=== PATIENT | male | born 1950 | race American Indian/Alaskan Native ===

== ENCOUNTER 2022-03-01 18:22 | Inpatient (IN) | payer MEDICAID, MEDICARE ==
[2022-03-01 21:38] LABS: Hematocrit 47.2 % (35.5-45.6); Hemoglobin 15.2 gm/dl (11.8-15.2); Mean Corpuscular HGB Conc 32 % (32-34); Mean Corpuscular Volume 92 fl (84-94); Platelet Count 125 K/mm3 (140-440); Red Blood Count 5.12 M/mm3 (3.65-5.03); Red Cell Distribution Width 13.6 % (13.2-15.2)
[2022-03-01 21:41] LABS: Alanine Aminotransferase 8 units/L (7-56); Albumin 4.2 g/dL (3.9-5); BUN/Creatinine Ratio 13; Blood Urea Nitrogen 13 mg/dL (9-20); Calcium 9.7 mg/dL (8.4-10.2); Hemolysis Index 33
[2022-03-01 22:26] LABS: Band Neutrophils # (Manual) 0.3 K/mm3; Monocytes % (Manual) 0 % (0.0-7.3); Platelet Estimate Consistent w Auto; Total Cells Counted 100
--- NOTE | 2022-03-02 10:02 | Emergency Department Report ---
ED General Adult HPI - General Chief complaint: Recheck/Abnormal Lab/Rx Stated complaint: MEDICAL CLEARANCE Time Seen by Provider: 03/02/22 09:42 Source: patient, family Mode of arrival: Wheelchair Limitations: No Limitations - History of Present Illness Initial comments: Patient is 72-year-old male [facility] abnormal outside blood work. CBC reportedly showed WBC count in the 30,000s. Patient has dementia and is unable to give further history. - Related Data Allergies Allergy/AdvReac Type Severity Reaction Status Date / Time No Known Allergies Allergy Verified 03/01/22 20:27 ED Review of Systems ROS: Stated complaint: MEDICAL CLEARANCE Other details as noted in HPI Comment: Unobtainable due to pts medical conditions ED Physical Exam - General Limitations: No Limitations General appearance: alert, in no apparent distress - Head Head exam: Present: atraumatic, normocephalic - Respiratory Respiratory exam: Present: normal lung sounds bilaterally. Absent: respiratory distress - Cardiovascular Cardiovascular Exam: Present: regular rate, normal rhythm, normal heart sounds - GI/Abdominal GI/Abdominal exam: Present: soft. Absent: distended, tenderness - Rectal Rectal exam: Present: deferred - Neurological Exam Neurological exam: Present: alert, CN II-XII intact - Skin Skin exam: Present: warm, dry, intact, normal color ED Course Vital Signs 03/02/22 00:20 Temperature 97.5 F L Pulse Rate 65 Respiratory 16 Rate Blood Pressure 103/69 [Right] O2 Sat by Pulse 99 Oximetry ED Medical Decision Making - Lab Data Result diagrams: 03/01/22 20:41 03/01/22 20:41 - Medical Decision Making CBC reveals leukocytosis of 30,000 with lymphocytic predominance concerning for leukemia. Chemistry is unremarkable. Vital signs are stable. Will admit to hospitalist for further work-up. Critical care attestation.: If time is entered above; I have spent that time in minutes in the direct care of this critically ill patient, excluding procedure time. ED Disposition Clinical Impression: Lymphocytosis Disposition: ADMITTED INPATIENT Is pt being admited?: Yes Condition: Stable
--- NOTE | 2022-03-02 10:32 | XRay Report ---
CHEST 2 VIEWS INDICATION / CLINICAL INFORMATION: Chest pain. COMPARISON: 12/25/2018 FINDINGS: SUPPORT DEVICES: None. HEART / MEDIASTINUM: No significant abnormality. LUNGS / PLEURA: No significant pulmonary or pleural abnormality. No pneumothorax. 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 IMPRESSION: 1. No acute findings. Signer Name: Jama Olea Jr, MD Signed: 03/02/2022 10:28 AM Workstation Name: [id number]
[2022-03-02] MEDS ORDERED: MORPHINE 4 MG/1 ML INJ IV PRN (10:37)
[2022-03-02] MEDS ORDERED: ONDANSETRON 4 MG/2 ML INJ IV PRN ×2 (10:37→16:54)
[2022-03-02] MEDS ORDERED: MORPHINE 2 MG/1 ML INJ IV PRN (10:37)
[2022-03-02] MEDS ORDERED: ACETAMINOPHEN 325 MG TAB PO PRN ×2 (10:37→16:54)
[2022-03-02] MEDS ORDERED: HYDROcodone/ACETAMINOPHEN 5-325 MG TAB PO PRN (10:37)
[2022-03-02] MEDS ORDERED: METOCLOPRAMIDE 10 MG/2 ML INJ IV PRN (16:54)
--- NOTE | 2022-03-02 17:29 | History and Physical Report ---
History of Present Illness Date of examination: 03/02/22 Date of admission: 03/02/22 10:37 Chief complaint: High white count History of present illness: 72-year-old male sent from alf facility for high blood count of 30,000. Patient has dementia with behavioral problems. History could not be obtained. Limited history available from alf facility. Early onset dementia. Review of Systems ROS: Constitutional cachectic HEENT no sore throat no post nasal drip no diplopia Neck no neck stiffness no lymph gland enlargement Chest and lungs no shortness of breath cough or wheezing CVS no chest pain no diaphoresis no palpitations GI no nausea no vomiting no diarrhea Genitourinary system no dysuria no flank pain Musculoskeletal system no muscle pains no joint pains SAMPLE PASTER alert but not oriented Skin no rash no itching Psychiatric no depression no homicidal or suicidal tendencies Hematologic no lymphedema or bruising Endocrine no polydipsia no polyuria no cold intolerance no heat intolerance Past History Past Medical History: other (Dementia with behavioral disturbances) Past Surgical History: Other (Not available) Social history: full code, other (Lives in alf facility) Family history: other (Not available) Medications and Allergies Allergies Allergy/AdvReac Type Severity Reaction Status Date / Time No Known Allergies Allergy Verified 03/01/22 20:27 Active Meds: Active Medications Acetaminophen (Acetaminophen 325 Mg Tab) 650 mg PO Q4H PRN PRN Reason: Pain MILD(1-3)/Fever >100.5/ABDI Acetaminophen (Acetaminophen 325 Mg Tab) 650 mg PO Q4H PRN PRN Reason: Pain MILD(1-3)/Fever >100.5/ABDI Hydrocodone Bitart/Acetaminophen (Hydrocodone/Acetaminophen 5-325 Mg Tab) 2 each PO Q6H PRN PRN Reason: Pain, Moderate (4-6) Enoxaparin Sodium (Enoxaparin 40 Mg/0.4 Ml Inj) 40 mg SUB-Q QDAY LJ Famotidine (Famotidine 20 Mg/2 Ml Inj) 20 mg IV BID LJ Sodium Chloride (Nacl 0.9% 1000 Ml) 1,000 mls @ 75 mls/hr IV DIRECT LJ Metoclopramide HCl (Metoclopramide 10 Mg/2 Ml Inj) 10 mg IV Q6H PRN PRN Reason: Nausea And Vomiting Morphine Sulfate (Morphine 2 Mg/1 Ml Inj) 2 mg IV Q4H PRN PRN Reason: Pain, Moderate (4-6) Morphine Sulfate (Morphine 4 Mg/1 Ml Inj) 4 mg IV Q4H PRN PRN Reason: Pain , Severe (7-10) Ondansetron HCl (Ondansetron 4 Mg/2 Ml Inj) 4 mg IV Q8H PRN PRN Reason: Nausea And Vomiting Ondansetron HCl (Ondansetron 4 Mg/2 Ml Inj) 4 mg IV Q8H PRN PRN Reason: Nausea And Vomiting Sodium Chloride (Sodium Chloride 0.9% 10 Ml Flush Syringe) 10 ml IV BID LJ Sodium Chloride (Sodium Chloride 0.9% 10 Ml Flush Syringe) 10 ml IV PRN PRN PRN Reason: LINE FLUSH Sodium Chloride (Sodium Chloride 0.9% 10 Ml Flush Syringe) 10 ml IV BID LJ Sodium Chloride (Sodium Chloride 0.9% 10 Ml Flush Syringe) 10 ml IV PRN PRN PRN Reason: LINE FLUSH Exam - Constitutional Vitals: Temp Pulse Resp BP Pulse Ox 97.5 F L 65 16 103/69 99 03/02/22 00:20 03/02/22 00:20 03/02/22 00:20 03/02/22 00:20 03/02/22 00:20 General appearance: Present: no acute distress, well-nourished - EENT Eyes: Present: PERRL ENT: hearing intact, clear oral mucosa - Neck Neck: Present: supple, normal ROM - Respiratory Respiratory effort: normal Respiratory: bilateral: CTA - Cardiovascular Heart rate: 78 Rhythm: regular Heart Sounds: Present: S1 & S2. Absent: rub, click - Extremities Extremities: no ischemia, pulses intact, pulses symmetrical, No edema Peripheral Pulses: within normal limits - Abdominal General gastrointestinal: Present: soft, non-tender, non-distended, normal bowel sounds Male genitourinary: Present: normal - Rectal Rectal Exam: deferred - Integumentary Integumentary: Present: clear, warm, dry - Musculoskeletal Musculoskeletal: gait normal, strength equal bilaterally - Psychiatric Psychiatric: appropriate mood/affect, intact judgment & insight - Neurologic Neurologic: CNII-XII intact, moves all extremities - Allied Health Allied health notes reviewed: nursing, case management Results - Labs CBC & Chem 7: 03/01/22 20:41 03/01/22 20:41 Labs: Laboratory Last Values WBC 30.0 K/mm3 (4.5-11.0) H 03/01/22 20:41 RBC 5.12 M/mm3 (3.65-5.03) H 03/01/22 20:41 Hgb 15.2 gm/dl (11.8-15.2) 03/01/22 20:41 Hct 47.2 % (35.5-45.6) H 03/01/22 20:41 MCV 92 fl (84-94) 03/01/22 20:41 MCH 30 pg (28-32) 03/01/22 20:41 MCHC 32 % (32-34) 03/01/22 20:41 RDW 13.6 % (13.2-15.2) 03/01/22 20:41 Plt Count 125 K/mm3 (140-440) L 03/01/22 20:41 Lymph % (Auto) Rubber Gasket Inspector Trimmer 03/01/22 20:41 Lymph # (Auto) Rubber Gasket Inspector Trimmer 03/01/22 20:41 Add Manual Diff Complete 03/01/22 20:41 Total Counted 100 03/01/22 20:41 Seg Neutrophils % Rubber Gasket Inspector Trimmer 03/01/22 20:41 Seg Neuts % (Manual) 7.0 % (40.0-70.0) L 03/01/22 20:41 Band Neutrophils % 1.0 % 03/01/22 20:41 Lymphocytes % (Manual) 90.0 % (13.4-35.0) H 03/01/22 20:41 Reactive Lymphs % (Man) 0 % 03/01/22 20:41 Monocytes % (Manual) 0 % (0.0-7.3) 03/01/22 20:41 Eosinophils % (Manual) 1.0 % (0.0-4.3) 03/01/22 20:41 Basophils % (Manual) 1.0 % (0.0-1.8) 03/01/22 20:41 Metamyelocytes % 0 % 03/01/22 20:41 Myelocytes % 0 % 03/01/22 20:41 Promyelocytes % 0 % 03/01/22 20:41 Blast Cells % 0 % 03/01/22 20:41 Nucleated RBC % Not Reportable 03/01/22 20:41 Seg Neutrophils # Man 2.1 K/mm3 (1.8-7.7) 03/01/22 20:41 Band Neutrophils # 0.3 K/mm3 03/01/22 20:41 Lymphocytes # (Manual) 27.0 K/mm3 (1.2-5.4) H 03/01/22 20:41 Abs React Lymphs (Man) 0.0 K/mm3 03/01/22 20:41 Monocytes # (Manual) 0.0 K/mm3 (0.0-0.8) 03/01/22 20:41 Eosinophils # (Manual) 0.3 K/mm3 (0.0-0.4) 03/01/22 20:41 Basophils # (Manual) 0.3 K/mm3 (0.0-0.1) H 03/01/22 20:41 Metamyelocytes # 0.0 K/mm3 03/01/22 20:41 Myelocytes # 0.0 K/mm3 03/01/22 20:41 Promyelocytes # 0.0 K/mm3 03/01/22 20:41 Blast Cells # 0.0 K/mm3 03/01/22 20:41 WBC Morphology Not Reportable 03/01/22 20:41 Hypersegmented Neuts Not Reportable 03/01/22 20:41 Hyposegmented Neuts Not Reportable 03/01/22 20:41 Hypogranular Neuts Not Reportable 03/01/22 20:41 Smudge Cells Not Reportable 03/01/22 20:41 Toxic Granulation Not Reportable 03/01/22 20:41 Toxic Vacuolation Not Reportable 03/01/22 20:41 Dohle Bodies Not Reportable 03/01/22 20:41 Pelger-Huet Anomaly Not Reportable 03/01/22 20:41 Mary Rods Not Reportable 03/01/22 20:41 Platelet Estimate Consistent w auto 03/01/22 20:41 Clumped Platelets Not Reportable 03/01/22 20:41 Plt Clumps, EDTA Not Reportable 03/01/22 20:41 Large Platelets Not Reportable 03/01/22 20:41 Giant Platelets Not Reportable 03/01/22 20:41 Platelet Satelliting Not Reportable 03/01/22 20:41 Plt Morphology Comment Not Reportable 03/01/22 20:41 RBC Morphology Not Reportable 03/01/22 20:41 Dimorphic RBCs Not Reportable 03/01/22 20:41 Polychromasia Not Reportable 03/01/22 20:41 Hypochromasia Not Reportable 03/01/22 20:41 Poikilocytosis Not Reportable 03/01/22 20:41 Anisocytosis Not Reportable 03/01/22 20:41 Microcytosis Not Reportable 03/01/22 20:41 Macrocytosis Not Reportable 03/01/22 20:41 Spherocytes Not Reportable 03/01/22 20:41 Pappenheimer Bodies Not Reportable 03/01/22 20:41 Sickle Cells Not Reportable 03/01/22 20:41 Target Cells Not Reportable 03/01/22 20:41 Tear Drop Cells Not Reportable 03/01/22 20:41 Ovalocytes Not Reportable 03/01/22 20:41 Helmet Cells Not Reportable 03/01/22 20:41 Jaffe-Atlantis Bodies Not Reportable 03/01/22 20:41 Aurora Rings Not Reportable 03/01/22 20:41 Marc Cells Not Reportable 03/01/22 20:41 Bite Cells Not Reportable 03/01/22 20:41 Crenated Cell Not Reportable 03/01/22 20:41 Elliptocytes Not Reportable 03/01/22 20:41 Acanthocytes (Spur) Not Reportable 03/01/22 20:41 Rouleaux Not Reportable 03/01/22 20:41 Hemoglobin C Crystals Not Reportable 03/01/22 20:41 Schistocytes Not Reportable 03/01/22 20:41 Malaria parasites Not Reportable 03/01/22 20:41 Loco Bodies Not Reportable 03/01/22 20:41 Hem Pathologist Commnt No 03/01/22 20:41 Sodium 138 mmol/L (137-145) 03/01/22 20:41 Potassium 4.7 mmol/L (3.6-5.0) 03/01/22 20:41 Chloride 102.1 mmol/L (98-107) 03/01/22 20:41 Carbon Dioxide 24 mmol/L (22-30) 03/01/22 20:41 Anion Gap 17 mmol/L 03/01/22 20:41 BUN 13 mg/dL (9-20) 03/01/22 20:41 Creatinine 1.0 mg/dL (0.8-1.3) 03/01/22 20:41 Estimated GFR > 60 ml/min 03/01/22 20:41 BUN/Creatinine Ratio 13 % 03/01/22 20:41 Glucose 91 mg/dL (75-100) 03/01/22 20:41 Calcium 9.7 mg/dL (8.4-10.2) 03/01/22 20:41 Total Bilirubin 0.20 mg/dL (0.1-1.2) 03/01/22 20:41 AST 21 units/L (5-40) 03/01/22 20:41 ALT 8 units/L (7-56) 03/01/22 20:41 Alkaline Phosphatase 84 units/L (35-129) 03/01/22 20:41 Total Protein 6.9 g/dL (6.3-8.2) 03/01/22 20:41 Albumin 4.2 g/dL (3.9-5) 03/01/22 20:41 Albumin/Globulin Ratio 1.6 % 03/01/22 20:41 Short CBC 03/01/22 Range/Units 20:41 WBC 30.0 H (4.5-11.0) K/mm3 Hgb 15.2 (11.8-15.2) gm/dl Hct 47.2 H (35.5-45.6) % Plt Count 125 L (140-440) K/mm3 Microbiology: Microbiology 03/02/22 09:58 Peripheral/Venous Blood Culture - Preliminary Culture in Progress 03/02/22 09:58 Peripheral/Venous Blood Culture - Preliminary Culture in Progress Assessment and Plan Advance Directives: Yes (Full code) VTE prophylaxis?: Chemical Plan of care discussed with patient/family: Yes - Patient Problems (1) Lymphocytosis Current Visit: Yes Status: Acute Plan to address problem: Possible CLL versus AL L Hematology consult requested IV fluids (2) CLL (chronic lymphocytic leukemia) Current Visit: Yes Status: Chronic Plan to address problem: Possible CLL versus ALL Hematology consult requested Discharge to alf facility and treat as outpatient Given the dementia with behavioral disturbances--- the question arises whether to mehrdad Family to be consulted by the primary team t (3) Dementia with behavioral disturbance Current Visit: Yes Status: Chronic Qualifiers: Dementia type: vascular dementia Qualified Code(s): F01.51 - Vascular dementia with behavioral disturbance Plan to address problem: Psychiatric/mental health: Regarding medications for behavioral disturbances Patient may benefit from Risperdal Will defer to mental health/psych (4) DVT prophylaxis Current Visit: Yes Status: Acute Plan to address problem: On heparin and GI prophylaxis (5) Advance care planning Current Visit: Yes Status: Acute Plan to address problem: Could not be done because of the patient's condition
[2022-03-02] MEDS ORDERED: FAMOTIDINE 20 MG/2 ML INJ IV SCH (22:00)
[2022-03-03] MEDS: SODIUM CHLORIDE 0.9% 1000 ML 1,000 ML IV SCH ×2 (01:17→13:41)
[2022-03-03 07:10] LABS: Hematocrit 43.3 % (35.5-45.6); Hemoglobin 14.2 gm/dl (11.8-15.2); Mean Corpuscular HGB Conc 33 % (32-34); Mean Corpuscular Volume 91 fl (84-94); Platelet Count 124 K/mm3 (140-440); Red Blood Count 4.77 M/mm3 (3.65-5.03); Red Cell Distribution Width 13.4 % (13.2-15.2)
[2022-03-03 07:32] LABS: Alanine Aminotransferase 7 units/L (7-56); Albumin 3.8 g/dL (3.9-5); BUN/Creatinine Ratio 10; Blood Urea Nitrogen 11 mg/dL (9-20); Calcium 9.1 mg/dL (8.4-10.2); Hemolysis Index 4
--- NOTE | 2022-03-03 08:53 | Hem/Onc Consultation ---
History of Present Illness - Reason for Consult Consult date: 03/03/22 - History of Present Illness Heme/Onc Consult Note Seen via [employer] CPT 84742 Dx CLL This is a 72yo male who presented to [facility] ED from alf facility for abnormal labs. History could not be obtained due to patients confusion and limited history is available from alf facility. Per chart review, patient has dementia with behavioral problems. Hematology/Oncology was consulted for evaluation of elevated WBC. Patient examined at bedside, in no acute distress noted. AAOX3 this morning; answered all questions appropriately during interview. Denies significant past medical history or than current alcohol abuse and cigarette smoking. Follows at the [facility]. 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 Case d/w Dr. Lukas Ndiaye. Laboratory Last Values WBC 31.3 K/mm3 (4.5-11.0) H 03/03/22 05:55 Hgb 14.2 gm/dl (11.8-15.2) 03/03/22 05:55 Hct 43.3 % (35.5-45.6) 03/03/22 05:55 MCV 91 fl (84-94) 03/03/22 05:55 Plt Count 124 K/mm3 (140-440) L 03/03/22 05:55 Seg Neuts % (Manual) 7.0 % (40.0-70.0) L 03/01/22 20:41 Lymphocytes % (Manual) 90.0 % (13.4-35.0) H 03/01/22 20:41 Lymphocytes # (Manual) 27.0 K/mm3 (1.2-5.4) H 03/01/22 20:41 Basophils # (Manual) 0.3 K/mm3 (0.0-0.1) H 03/01/22 20:41 Creatinine 1.1 mg/dL (0.8-1.3) 03/03/22 05:55 AST 17 units/L (5-40) 03/03/22 05:55 ALT 7 units/L (7-56) 03/03/22 05:55 Alkaline Phosphatase 74 units/L (35-129) 03/03/22 05:55 Past History Past Medical History: other (Dementia with behavioral disturbances) Past Surgical History: Other (Not available) Social history: full code, other (Lives in alf facility) Family history: other (Not available) Medications and Allergies Allergies Allergy/AdvReac Type Severity Reaction Status Date / Time No Known Allergies Allergy Verified 03/01/22 20:27 Active Meds: Active Medications Acetaminophen (Acetaminophen 325 Mg Tab) 650 mg PO Q4H PRN PRN Reason: Pain MILD(1-3)/Fever >100.5/ABDI Acetaminophen (Acetaminophen 325 Mg Tab) 650 mg PO Q4H PRN PRN Reason: Pain MILD(1-3)/Fever >100.5/ABDI Hydrocodone Bitart/Acetaminophen (Hydrocodone/Acetaminophen 5-325 Mg Tab) 2 each PO Q6H PRN PRN Reason: Pain, Moderate (4-6) Enoxaparin Sodium (Enoxaparin 40 Mg/0.4 Ml Inj) 40 mg SUB-Q QDAY LJ Famotidine (Famotidine 20 Mg/2 Ml Inj) 20 mg IV BID LJ Sodium Chloride (Nacl 0.9% 1000 Ml) 1,000 mls @ 75 mls/hr IV DIRECT LJ Last Admin: 03/03/22 01:17 Dose: 75 mls/hr Metoclopramide HCl (Metoclopramide 10 Mg/2 Ml Inj) 10 mg IV Q6H PRN PRN Reason: Nausea And Vomiting Morphine Sulfate (Morphine 2 Mg/1 Ml Inj) 2 mg IV Q4H PRN PRN Reason: Pain, Moderate (4-6) Morphine Sulfate (Morphine 4 Mg/1 Ml Inj) 4 mg IV Q4H PRN PRN Reason: Pain , Severe (7-10) Ondansetron HCl (Ondansetron 4 Mg/2 Ml Inj) 4 mg IV Q8H PRN PRN Reason: Nausea And Vomiting Ondansetron HCl (Ondansetron 4 Mg/2 Ml Inj) 4 mg IV Q8H PRN PRN Reason: Nausea And Vomiting Sodium Chloride (Sodium Chloride 0.9% 10 Ml Flush Syringe) 10 ml IV BID LJ Sodium Chloride (Sodium Chloride 0.9% 10 Ml Flush Syringe) 10 ml IV PRN PRN PRN Reason: LINE FLUSH Sodium Chloride (Sodium Chloride 0.9% 10 Ml Flush Syringe) 10 ml IV BID LJ Sodium Chloride (Sodium Chloride 0.9% 10 Ml Flush Syringe) 10 ml IV PRN PRN PRN Reason: LINE FLUSH Exam - Constitutional Vitals: Last Vital Signs Temp 98.6 F 03/03/22 04:26 Pulse 67 03/03/22 04:26 Resp 16 03/03/22 04:26 BP 103/65 03/03/22 04:26 Pulse Ox 97 03/03/22 04:26 Results - Labs lab Results: Laboratory Results - last 24 hr 03/01/22 03/03/22 03/03/22 20:41 05:55 05:55 WBC 30.0 H 31.3 H RBC 5.12 H 4.77 Hgb 15.2 14.2 Hct 47.2 H 43.3 MCV 92 91 MCH 30 30 MCHC 32 33 RDW 13.6 13.4 Plt Count 125 L 124 L Lymph % (Auto) Road Driver Road Driver Lymph # (Auto) Road Driver Road Driver Add Manual Diff Complete Total Counted 100 Seg Neutrophils % Road Driver Road Driver Seg Neuts % (Manual) 7.0 L Band Neutrophils % 1.0 Lymphocytes % (Manual) 90.0 H Reactive Lymphs % (Man) 0 Monocytes % (Manual) 0 Eosinophils % (Manual) 1.0 Basophils % (Manual) 1.0 Metamyelocytes % 0 Myelocytes % 0 Promyelocytes % 0 Blast Cells % 0 Seg Neutrophils # Man 2.1 Band Neutrophils # 0.3 Lymphocytes # (Manual) 27.0 H Abs React Lymphs (Man) 0.0 Monocytes # (Manual) 0.0 Eosinophils # (Manual) 0.3 Basophils # (Manual) 0.3 H Metamyelocytes # 0.0 Myelocytes # 0.0 Promyelocytes # 0.0 Blast Cells # 0.0 Platelet Estimate Consistent w auto Hem Pathologist Commnt No Sodium 143 Potassium 4.1 Chloride 106.9 Carbon Dioxide 26 Anion Gap 14 BUN 11 Creatinine 1.1 Estimated GFR > 60 BUN/Creatinine Ratio 10 Glucose 79 Calcium 9.1 Total Bilirubin 0.40 AST 17 ALT 7 Alkaline Phosphatase 74 Total Protein 5.8 L Albumin 3.8 L Albumin/Globulin Ratio 1.9
[2022-03-03 11:06] LABS: Band Neutrophils # (Manual) 0.9 K/mm3; Basophils % (Manual) 0 % (0.0-1.8); Platelet Estimate Consistent w Auto; Total Cells Counted 100
[2022-03-03] MEDS: ENOXAPARIN 40 MG/0.4 ML INJ SUB-Q SCH (12:03)
[2022-03-03] MEDS ORDERED: SODIUM CHLORIDE 0.9% 1000 ML 1,000 ML IV ONE (13:42)
--- NOTE | 2022-03-03 15:44 | Cat Scan Report ---
CT ABDOMEN AND PELVIS WITH CONTRAST HISTORY: Suspected malignancy; evaluate for splenomeglay. COMPARISON: None. TECHNIQUE: Axial CT images were obtained through the abdomen and pelvis after 100 cc of Omnipaque 350 IV contrast. Sagittal and coronal reformatted images. All CT scans at this location are performed us ing CT dose reduction for ALARA by means of automated exposure control. FINDINGS: CT ABDOMEN: Lung Bases: Clear. Liver: No significant abnormality. Biliary: No significant abnormality. Spleen: No significant abnormality. Unenlarged. The spleen measures 11 cm in length. No focal lesion . Pancreas: No significant abnormality. Adrenals: No significant abnormality. Kidneys: No significant abnormality. 2.3 cm cyst at the superior pole of the right kidney is noted. Lymphatics: No lymphadenopathy. Vasculature: Mild atherosclerotic disease without acute abnormality. Bowel/Peritoneum: The stomach, small bowel loops and colon are unremarkable given no oral contrast wa s administered. Normal appendix. CT PELVIS: : The bladder is poorly distended but grossly normal. There is mild prostatomegaly measuring 5.4 cm in diameter. Osseous Structures: Osteopenia. No suspicious bony lesion or fracture is detected. There is mild lumb ar spondylosis. There is been previous internal fixation of a left femoral neck. Additional Findings: None IMPRESSION: No significant abnormality. No evidence for malignancy on CT with contrast. The spleen is unremarkabl e. Signer Name: Jama Olea Jr, MD Signed: 03/03/2022 3:40 PM Workstation Name: [id number]
[2022-03-03 20:49] LABS: Color,Urine Straw (Yellow)
[2022-03-03 20:53] LABS: Bacteria,Urine 1+ /HPF (Negative); Mucus,Urine FEW /HPF
[2022-03-03] MEDS: FAMOTIDINE 20 MG TAB PO SCH (22:51)
[2022-03-04] MEDS: SODIUM CHLORIDE 0.9% 1000 ML 1,000 ML IV SCH ×2 (05:49→18:23)
--- NOTE | 2022-03-04 07:13 | Progress Note ---
Assessment and Plan - Patient Problems (1) Lymphocytosis Current Visit: Yes Status: Acute Plan to address problem: Possible CLL versus AL L Hematology consult appreciated No chemotherapy Possible hospice (2) CLL (chronic lymphocytic leukemia) Current Visit: Yes Status: Chronic Plan to address problem: Possible CLL versus ALL Hematology consult requested Discharge to longterm facility and treat as outpatient Given the dementia with behavioral disturbances--- the question arises whether to mehrdad Family to be consulted by the primary team t (3) Dementia with behavioral disturbance Current Visit: Yes Status: Chronic Qualifiers: Dementia type: vascular dementia Qualified Code(s): F01.51 - Vascular dementia with behavioral disturbance Plan to address problem: Psychiatric/mental health: Regarding medications for behavioral disturbances Patient may benefit from Risperdal Will defer to mental health/psych (4) DVT prophylaxis Current Visit: Yes Status: Acute Plan to address problem: On heparin and GI prophylaxis (5) Advance care planning Current Visit: Yes Status: Acute Plan to address problem: Could not be done because of the patient's condition Subjective Date of service: 03/03/22 Principal diagnosis: CLL Interval history: History of present illness: 72-year-old male sent from longterm facility for high blood count of 30,000. Patient has dementia with behavioral problems. History could not be obtained. Limited history available from longterm facility. Early onset dementia. 03/03/2022 And neurology consult appreciated Discussed with brother and [id number] about the prognosis and care plan. No chemotherapy for CLL given his age and dementia Objective - Constitutional Vitals: Vital Signs - 12hr 03/03/22 03/04/22 03/04/22 22:01 02:00 04:41 Temperature 99.0 F 98.2 F Pulse Rate 80 70 Respiratory 16 16 Rate Blood Pressure 114/64 90/53 O2 Sat by Pulse 96 95 95 Oximetry General appearance: Present: no acute distress, well-nourished - EENT Eyes: PERRL, EOM intact ENT: hearing intact, clear oral mucosa Ears: bilateral: normal - Neck Neck: supple, normal ROM - Respiratory Respiratory effort: normal Respiratory: bilateral: CTA - Breasts Breasts: normal - Cardiovascular Heart rate: 78 Rhythm: regular Heart Sounds: Present: S1 & S2. Absent: gallop, rub Extremities: pulses intact, No edema, normal color, Full ROM - Gastrointestinal General gastrointestinal: Present: soft, non-tender, non-distended, normal bowel sounds - Genitourinary Male genitourinary: normal - Integumentary Integumentary: clear, warm, dry - Musculoskeletal Musculoskeletal: 1, strength equal bilaterally - Neurologic Neurologic: moves all extremities - Psychiatric Psychiatric: memory intact, appropriate mood/affect, intact judgment & insight - Labs CBC & Chem 7: 03/03/22 05:55 03/03/22 05:55 Labs: Abnormal lab results 03/03/22 03/03/22 Range/Units 05:55 05:55 WBC 31.3 H (4.5-11.0) K/mm3 Plt Count 124 L (140-440) K/mm3 Seg Neuts % (Manual) 10.0 L (40.0-70.0) % Lymphocytes # (Manual) 6.9 H (1.2-5.4) K/mm3 Eosinophils # (Manual) 0.9 H (0.0-0.4) K/mm3 Total Protein 5.8 L (6.3-8.2) g/dL Albumin 3.8 L (3.9-5) g/dL
[2022-03-04] MEDS: ENOXAPARIN 40 MG/0.4 ML INJ SUB-Q SCH (10:09)
[2022-03-04] MEDS: FAMOTIDINE 20 MG TAB PO SCH ×2 (10:09→21:50)
[2022-03-04] MEDS ORDERED: NICOTINE 14 MG/24 HR PATCH TD ONE (18:03)
[2022-03-05] MEDS ORDERED: LORazepam 0.5 MG TAB PO SCH (07:10)
[2022-03-05] MEDS: FAMOTIDINE 20 MG TAB PO SCH (09:27)
[2022-03-05] MEDS: ENOXAPARIN 40 MG/0.4 ML INJ SUB-Q SCH (09:27)
--- NOTE | 2022-03-05 09:28 | Progress Note ---
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 Inpatient hospice placement. (3) Dementia with behavioral disturbance Current Visit: Yes Status: Chronic Qualifiers: Dementia type: vascular dementia Qualified Code(s): F01.51 - Vascular dementia with behavioral disturbance Plan to address problem: Psychiatric/mental health: Regarding medications for behavioral disturbances Patient may benefit from Risperdal Will defer to mental health/psych (4) DVT prophylaxis Current Visit: Yes Status: Acute Plan to address problem: On heparin and GI prophylaxis (5) Advance care planning Current Visit: Yes Status: Acute Plan to address problem: Could not be done because of the patient's condition Subjective Date of service: 03/04/22 Principal diagnosis: CLL Interval history: History of present illness: 72-year-old male [facility] for high blood count of 30,000. Patient has dementia with behavioral problems. History could not be obtained. Limited history available from jail facility. Early onset dementia. 03/03/2022 And neurology consult appreciated Discussed with brother and [id number] about the prognosis and care plan. No chemotherapy for CLL given his age and dementia 03/04/2022 Hospice placement Case management and manager social responsibility informed Objective - Constitutional Vitals: Vital Signs - 12hr 03/04/22 03/05/22 03/05/22 23:00 00:10 05:31 Temperature 98.5 F 98.0 F Pulse Rate 72 66 Respiratory 18 19 Rate Blood Pressure 127/73 121/68 O2 Sat by Pulse 98 94 96 Oximetry General appearance: Present: no acute distress, well-nourished - EENT Eyes: PERRL, EOM intact ENT: hearing intact, clear oral mucosa Ears: bilateral: normal - Neck Neck: supple, normal ROM - Respiratory Respiratory effort: normal Respiratory: bilateral: CTA - Breasts Breasts: normal - Cardiovascular Heart rate: 78 Rhythm: regular Heart Sounds: Present: S1 & S2. Absent: gallop, rub Extremities: pulses intact, No edema, normal color, Full ROM - Gastrointestinal General gastrointestinal: Present: soft, non-tender, non-distended, normal bowel sounds - Genitourinary Male genitourinary: normal - Integumentary Integumentary: clear, warm, dry - Musculoskeletal Musculoskeletal: 1, strength equal bilaterally - Neurologic Neurologic: moves all extremities - Psychiatric Psychiatric: memory intact, appropriate mood/affect, intact judgment & insight - Labs CBC & Chem 7: 03/03/22 05:55 03/03/22 05:55
--- NOTE | 2022-03-05 09:39 | Discharge Summary ---
Providers - Providers Date of Admission: 03/02/22 10:37 Date of discharge: 03/05/22 Attending physician: GITA OLMOS 03/02/22 16:54 Consult to Physician [CONS] Routine Comment: Consulting Provider: [facility] Physician Instructions: Reason For Exam: Leukocytosis,R/o ALL Primary care physician: COMMUNITY DEVELOPMENT SPECIALIST Hospitalization Condition: Stable Hospital course: Subjective Date of service: 03/05/22 Principal diagnosis: CLL Interval history: History of present illness: 72-year-old male sent from group home facility for high blood count of 30,000. Patient has dementia with behavioral problems. History could not be ob tained. Limited history available from group home facility. Early onset dementia. 03/03/2022 And neurology consult appreciated Discussed with brother and [id number] about the prognosis and care plan. No chemotherapy for CLL given his age and dementia 03/04/2022 Hospice placement Case management and social services specialist informed 03/05/2022 Hospice placement in [place] Assessment and Plan - Patient Problems (1) Lymphocytosis Current Visit: Yes Status: Acute Plan to address problem: Possible CLL versus AL L Hematology consult requested IV fluids (2) CLL (chronic lymphocytic leukemia) Current Visit: Yes Status: Chronic Plan to address problem: Possible CLL versus ALL Hematology consult appreciated After discussion with the brother and [id number]--- we agreed on no further treatment for CLL and hospice placement. Inpatient hospice placement. (3) Dementia with behavioral disturbance Current Visit: Yes Status: Chronic Qualifiers: Dementia type: vascular dementia Qualified Code(s): F01.51 - Vascular dementia with behavioral disturbance Plan to address problem: Psychiatric/mental health: Regarding medications for behavioral disturbances Patient may benefit from Risperdal Will defer to mental health/psych (4) DVT prophylaxis Current Visit: Yes Status: Acute Plan to address problem: On heparin and GI prophylaxis (5) Advance care planning Current Visit: Yes Status: Acute Plan to address problem: Could not be done because of the patient's condition Disposition: 50 HOSPICE/HOME Final Discharge Diagnosis (Prints w/discharge instructions): Chronic lymphocytic leukemia. Dementia with behavioral disturbances. Lymphocytosis Time spent for discharge: 32 minutes - Discharge Diagnoses (1) Lymphocytosis Status: Acute (2) CLL (chronic lymphocytic leukemia) Status: Chronic (3) Dementia with behavioral disturbance Status: Chronic Qualifiers: Dementia type: vascular dementia Qualified Code(s): F01.51 - Vascular dementia with behavioral disturbance (4) DVT prophylaxis Status: Acute (5) Advance care planning Status: Acute Core Measure Documentation - Palliative Care Palliative Care/ Comfort Measures: Not Applicable - Core Measures Any of the following diagnoses?: none Exam - Constitutional Vitals: Temp Pulse Resp BP Pulse Ox 98.0 F 66 19 121/68 96 03/05/22 05:03/05/22 05:03/05/22 05:03/05/22 05:03/05/22 05:31 General appearance: Present: no acute distress, well-nourished - EENT Eyes: Present: PERRL ENT: hearing intact, clear oral mucosa - Neck Neck: Present: supple, normal ROM - Respiratory Respiratory effort: normal Respiratory: bilateral: CTA - Cardiovascular Heart rate: 78 Rhythm: regular Heart Sounds: Present: S1 & S2. Absent: rub, click - Extremities Extremities: pulses symmetrical, No edema Peripheral Pulses: within normal limits - Abdominal General gastrointestinal: Present: soft, non-tender, non-distended, normal bowel sounds Male genitourinary: Present: normal - Integumentary Integumentary: Present: clear, warm, dry - Musculoskeletal Musculoskeletal: gait normal, strength equal bilaterally - Psychiatric Psychiatric: appropriate mood/affect, intact judgment & insight - Neurologic Neurologic: CNII-XII intact, moves all extremities Plan Activity: no restrictions Diet: regular Follow up with: PRIMARY CARE, [Primary Care Provider] - 3-5 Days
[2022-03-05] MEDS ORDERED: NICOTINE 14 MG/24 HR PATCH TD SCH (10:00)
[2022-03-05 14:13] VITALS: BP 128/71
== END 2022-03-05 13:35 | disposition hospice, inpatient (51) | DRG 841 ==
LOC: ED 18:22 → 3A 03-02 10:37
PROVIDERS: ADMIT Internal Medicine; ATTEND Internal Medicine
DX: C91.10 Chronic lymphocytic leukemia of B-cell type not having achieved remission (principal); F01.51 Vascular dementia, unspecified severity, with behavioral disturbance; Z20.822 Contact with and (suspected) exposure to COVID-19; Z51.5 Encounter for palliative care
CPT/HCPCS: 36415; 71046; 74177; 80053; 81001; 85007; 85025; 87040; 99285; 99406; G0378; J3490; J1650; J2270; J7030; Q9967; U0003